=== PATIENT | female | born 2000 | race Caucasian/White ===

== ENCOUNTER 2023-05-26 18:35 | Emergency (ER) | payer MEDICAID ==
[~2023-05-26] VITALS: Ht 167.6 cm; Wt 127.0 kg
[2023-05-26 18:45] VITALS: BP 178/118; PULSE 106; RESP 20; TEMP 98.5; O2SAT 98
== END 2023-05-26 22:20 | disposition left against medical advice (07) ==
LOC: EDSEX 18:35 → ER 18:35
DX: M79.642 Pain in left hand (principal); Z53.21 Procedure and treatment not carried out due to patient leaving prior to being seen by health care provider
CPT/HCPCS: 81025; 99281